=== PATIENT | male | born 1970 | race Caucasian/White ===

== ENCOUNTER 2025-02-26 10:52 | Emergency (ER) | payer OTHER ==
[2025-02-26 11:01] VITALS: TEMP 97.8; BMI 25.0
[2025-02-26 12:53] LABS: ABSOLUTE IMMATURE GRANULOCYTES 0.28 x10^3/uL (0.0-0.031); BASOPHILS # 0.07 x10^3/uL (0.01-0.08); EOSINOPHIL % 1.5 % (0.8-7.0); EOSINOPHILS # 0.22 x10^3/uL (0.04-0.54); HEMATOCRIT 46.5 % (40.1-51.0); HEMOGLOBIN 14.9 g/dL (13.7-17.5); MEAN PLT VOLUME 9.4 fl (9.4-12.4); MONOCYTE # 0.87 x10^3/uL (0.30-0.82); MONOCYTE % 6.1 % (5.3-12.2); PLATELET COUNT 236 x10^3/uL (163-337)
[2025-02-26 13:09] LABS: POTASSIUM 3.2 mmol/L (3.5-5.1)
[2025-02-26 13:12] LABS: CALCIUM 9.4 mg/dL (8.5-10.1)
[2025-02-26 13:13] LABS: ALBUMIN 3.2 g/dl (3.4-5.0); MAGNESIUM 1.8 mg/dL (1.8-2.4)
[2025-02-26 13:16] LABS: CREATININE 0.8 mg/dL (0.55-1.3)
[2025-02-26 13:17] LABS: BILIRUBIN,TOTAL 0.2 mg/dL (0.2-1); TOT PROT 6.2 g/dl (6.4-8.2)
[2025-02-26 13:20] LABS: BLOOD UREA NITROGEN 22.2 mg/dL (7-18)
[2025-02-26] MEDS ORDERED: POTASSIUM CHLORIDE ORAL LIQUID 20 MEQ/15 ML ONE (13:30)
[2025-02-26] MEDS ORDERED: MAGNESIUM 1GM/D5W - 1 GM/100 ML IVPB IVPB ONE (13:30)
[2025-02-26 13:36] LABS: EPI CELLS 7 /uL (0-25.1); HYALINE CASTS 1 /uL (0-3.1); PH,URINE 5.5 (5.0-8.0); URINE APPEARANCE CLEAR; URINE BACTERIA 2 /uL (0-1359); URINE BILIRUBIN NEGATIVE (NEGATIVE); URINE COLOR YELLOW; URINE GLUCOSE (UA) NEGATIVE (NEGATIVE); URINE KETONE TRACE (NEGATIVE); URINE LEUK ESTERASE NEGATIVE (NEGATIVE); URINE NITRITE NEGATIVE (NEGATIVE); URINE PROTEIN 1+ (NEGATIVE); URINE RBC 22 /uL (0-23.9); URINE UROBILINOGEN 0.2 mg/dL (0.2-1.0); URINE WBC 13 /uL (0-25.8)
[2025-02-26] MEDS: MAGNESIUM SULF 50% (8.12 MEQ/2 ML-1 GM VIAL) IVPB ONE (13:48)
[2025-02-26] MEDS: POTASSIUM CHLORIDE ORAL LIQUID 20 MEQ/15 ML PO ONE (13:48)
[2025-02-26 14:07] LABS: HIV INTERPRETATION NEGATIVE (NEGATIVE)
[2025-02-26 14:08] LABS: HCV DIAGNOSTIC IN-HOUSE W/RFLX NON-REACTIVE (NONREACTIVE)
[2025-02-26 14:48] VITALS: BP 109/74; PULSE 90; RESP 18
== END 2025-02-26 18:28 | disposition home or self-care (01) ==
LOC: JER 10:52
PROC: 3E033GC Introduction of Other Therapeutic Substance into Peripheral Vein, Percutaneous Approach (ICD-10-PCS; principal; 2025-02-26)
DX: K57.32 Diverticulitis of large intestine without perforation or abscess without bleeding (principal); R19.7 Diarrhea, unspecified; R10.32 Left lower quadrant pain
CPT/HCPCS: 36415; 74177-TC; 80053; 81003; 83690; 83735; 85025; 86803; 87389; 93005; 93010; 99285-25; Q9967